=== PATIENT | male | born 1940 | race Caucasian/White ===

== ENCOUNTER 2021-12-02 17:00 | Emergency (ER) | payer OTHER ==
[2021-12-02] MEDS ORDERED: CYCLOBENZAPRINE5 MG PO (19:58)
[2021-12-02] MEDS ORDERED: LIDOCAINE PAIN1 EACH TP (19:58)
[2021-12-02] MEDS ORDERED: MELOXICAM10 MG PO (19:58)
== END 2021-12-02 20:17 | disposition home or self-care (01) ==
LOC: ER1 17:00
DX: M54.50 Low back pain, unspecified (principal); M54.6 Pain in thoracic spine; Z87.81 Personal history of (healed) traumatic fracture; V49.9XXA Car occupant (driver) (passenger) injured in unspecified traffic accident, initial encounter
CPT/HCPCS: 72125; 72128; 72131; 96372; 99283; J1885; J2270

== ENCOUNTER 2021-12-20 12:32 | Observation (INO) | payer BLACK LUNG, MEDICARE ==
[~2021-12-20] VITALS: Ht 167.6 cm; Wt 52.2 kg
[~2021-12-20 12:32] MED LIST: CYCLOBENZAPRINE5 MG PO; LIDOCAINE PAIN1 EACH TP; MELOXICAM10 MG PO
[2021-12-20 13:31] LABS: RED BLOOD COUNT 4.64 M/UL (4.20-5.50)
[2021-12-20 13:55] LABS: BUN/CREATININE RATIO 17 (0-10)
[2021-12-21 02:49] LABS: HEMOGLOBIN 13.3 gm/dl (14.0-17.5)
[2021-12-21 03:14] LABS: BUN/CREATININE RATIO 22 (0-10)
[2021-12-21 03:35] LABS: RED BLOOD COUNT 4.13 M/UL (4.20-5.50); WHITE BLOOD COUNT 4.9 K/UL (4.5-11.0)
--- NOTE | 2021-12-21 06:07 | NUR ---
VSS. ROOM AIR. PATIENT HAS PACEMAKER AICD ON LEFT CHEST WALL. NO COMPLAINTS AT THIS TIME.
[2021-12-21] MEDS ORDERED: MELOXICAM7.5 MG PO (09:25)
[2021-12-21] MEDS ORDERED: HYDROCODON-ACE1 EAC6 PO (09:25)
[2021-12-21] MEDS ORDERED: CYCLOBENZAPRINE5 MG PO (09:26)
[2021-12-21] MEDS ORDERED: ATORVASTATIN CA20 MG PO (09:26)
[2021-12-21] MEDS ORDERED: ASPIRIN 325MG325 MG PO (09:27)
[2021-12-21] MEDS ORDERED: ANORO ELLIPTA1 EACH INH (09:27)
== END 2021-12-21 16:11 | disposition home or self-care (01) ==
LOC: ER1 12:32 → CDU 17:02 → M/S 17:02
PROVIDERS: Physician Assistant; Physician Assistant Medical; ADMIT Internal Medicine
DX: R07.89 Other chest pain (principal); Z20.822 Contact with and (suspected) exposure to COVID-19; R91.8 Other nonspecific abnormal finding of lung field; J44.1 Chronic obstructive pulmonary disease with (acute) exacerbation; J60 Coalworker's pneumoconiosis; I25.10 Atherosclerotic heart disease of native coronary artery without angina pectoris; I11.0 Hypertensive heart disease with heart failure; I50.22 Chronic systolic (congestive) heart failure; I49.3 Ventricular premature depolarization; M54.9 Dorsalgia, unspecified; M48.54XA Collapsed vertebra, not elsewhere classified, thoracic region, initial encounter for fracture; I25.5 Ischemic cardiomyopathy; E78.5 Hyperlipidemia, unspecified; K21.9 Gastro-esophageal reflux disease without esophagitis; F17.210 Nicotine dependence, cigarettes, uncomplicated; Z91.018 Allergy to other foods; Z95.1 Presence of aortocoronary bypass graft; Z79.82 Long term (current) use of aspirin; Z79.899 Other long term (current) drug therapy; Z95.810 Presence of automatic (implantable) cardiac defibrillator
CPT/HCPCS: ECHO; 36415; 80053; 82550; 82553; 83735; 83880; 84484; 85025; 86140; 93005; 93306; 94640; 94664; 94760; 96374; 96375; 99285; G0378; J1956; J2920; Q9967; U0002